=== PATIENT | male | born 1965 | race Caucasian/White ===

== ENCOUNTER 2020-10-17 04:32 | Day surgery (SDC) | payer BC, OTHER ==
[2020-10-15 10:12] VITALS: BMI 32.5
[2020-10-17] MEDS ORDERED: BUPIVACAINE HCL/PF 0.5% (5MG/ML) 10 ML VIAL ONE ×2 (15:02→15:21)
[2020-10-17] MEDS ORDERED: ROPIVACAINE HCL 0.5% 30ML VIAL ONE (15:13)
[2020-10-17] MEDS ORDERED: LIDOCAINE HCL 1%, 10 MG/ML (20ML VIAL) ONE (15:21)
[2020-10-17] MEDS ORDERED: MIDAZOLAM HCL 2 MG/2 ML SINGLE DOSE VIAL ONE ×5 (15:48→17:08)
[2020-10-17] MEDS ORDERED: PROPOFOL 20 ML ONE (16:45)
[2020-10-17] MEDS ORDERED: oxyCODONE HCL 5 MG TABLET PO PRN (18:26)
[2020-10-17] MEDS ORDERED: ONDANSETRON 4 MG/2 ML VIAL IVPUSH PRN (18:26)
[2020-10-17] MEDS ORDERED: PROMETHAZINE HCL 25 MG/1 ML VIAL IVPUSH PRN (18:26)
[2020-10-17 19:19] VITALS: TEMP 97.2
[2020-10-17 20:30] VITALS: BP 135/81; PULSE 50
== END 2020-10-17 21:11 | disposition home or self-care (01) ==
LOC: JASU-SURG 04:32
PROVIDERS: ATTEND Podiatrist Foot Surgery
PROC: 0LQN0ZZ Repair Right Lower Leg Tendon, Open Approach (ICD-10-PCS; 2020-10-17)
PROC: 0QBL0ZZ Excision of Right Tarsal, Open Approach (ICD-10-PCS; principal; 2020-10-17 13:00)
DX: M77.31 Calcaneal spur, right foot (principal); M76.61 Achilles tendinitis, right leg
CPT/HCPCS: 73630-TC-RT-FY; 94760